=== PATIENT | female | born 1945 ===

== ENCOUNTER 2020-01-02 08:45 | Inpatient (IN) | payer OTHER ==
[~2020-01-02] VITALS: Ht 157.5 cm; Wt 70.3 kg
[2020-01-02] MEDS ORDERED: CRESTOR10 MG PO (11:26)
[2020-01-02] MEDS ORDERED: JANUVIA100 MG PO (11:27)
[2020-01-02] MEDS ORDERED: TOPROL XL25 M1 PO (11:27)
[2020-01-02] MEDS ORDERED: JANUVIA25 MG (11:27)
[2020-01-02] MEDS ORDERED: METFORMIN PO (11:28)
[2020-01-02] MEDS ORDERED: GLIMEPIRIDE4 M1 PO (11:28)
[2020-01-02] MEDS ORDERED: LOSARTAN POTASS50 MG PO (11:29)
[2020-01-02] MEDS ORDERED: ASPIR 8181 MG PO (11:29)
[2020-01-02] MEDS ORDERED: PANTOPRAZOLE SO40 MG PO (11:30)
[2020-01-02] MEDS ORDERED: [UNRECOGNIZED DRUG - OTHER] EP (11:31)
[2020-01-02] MEDS ORDERED: AZOPT (11:33)
[2020-01-02] MEDS ORDERED: TIMOLOL (11:34)
[2020-01-02] MEDS ORDERED: BETIMOL5 M1 (11:36)
[2020-01-02] MEDS ORDERED: LANTUS (11:37)
[2020-01-02] MEDS ORDERED: LANTUS SUBCUTANEO (11:38)
[2020-01-02] MEDS ORDERED: INTEGRA CAPSUL1 EACH PO (11:39)
[2020-01-02] MEDS ORDERED: BIOTIN1000 MCG PO (11:52)
[2020-01-02] MEDS ORDERED: VITAMIN D310 MCG/1 M PO (11:52)
[2020-01-02] MEDS ORDERED: VITAMIN C100 MG PO (11:53)
[2020-01-05] MEDS ORDERED: BIOTIN5000 MCG PO (08:38)
[2020-01-05] MEDS ORDERED: VITAMIN C250 MG PO (08:39)
[2020-01-05] MEDS ORDERED: VITAMIN B-121000 MC4 PO (08:40)
[2020-01-05] MEDS ORDERED: METFORMIN HCL500 M3 PO (08:41)
[2020-01-05] MEDS ORDERED: LANTUS SOL100 UNIT/1 SQ (08:42)
[2020-01-05] MEDS ORDERED: RESTASIS1 EACH OP (08:47)
[2020-01-08] MEDS ORDERED: OXYC1TAB9 PO (12:41)
== END 2020-01-08 13:50 | disposition home or self-care (01) | DRG 331 ==
LOC: SURH 01-04 08:20 → O/R 01-05 08:45 → EDBD 01-05 08:45 → SURH 01-08 13:50
PROVIDERS: ADMIT Surgery; ATTEND Surgery
PROC: 30233N1 Transfusion of Nonautologous Red Blood Cells into Peripheral Vein, Percutaneous Approach (ICD-10-PCS; 2020-01-04)
PROC: 07BD4ZX Excision of Aortic Lymphatic, Percutaneous Endoscopic Approach, Diagnostic (ICD-10-PCS; 2020-01-04)
PROC: 0DTF4ZZ Resection of Right Large Intestine, Percutaneous Endoscopic Approach (ICD-10-PCS; principal; 2020-01-05 09:00)
DX: C18.0 Malignant neoplasm of cecum (principal); D50.0 Iron deficiency anemia secondary to blood loss (chronic); I11.9 Hypertensive heart disease without heart failure; E11.9 Type 2 diabetes mellitus without complications; E78.00 Pure hypercholesterolemia, unspecified; E03.9 Hypothyroidism, unspecified; K57.30 Diverticulosis of large intestine without perforation or abscess without bleeding; D36.0 Benign neoplasm of lymph nodes

== ENCOUNTER 2023-09-16 13:58 | Outpatient (CLI) | payer OTHER ==
[~2023-09-16 13:58] MED LIST: ASPIR 8181 MG PO; AZOPT; BETIMOL5 M1; BIOTIN1000 MCG PO; BIOTIN5000 MCG PO; CRESTOR10 MG PO; GLIMEPIRIDE4 M1 PO; INTEGRA CAPSUL1 EACH PO; JANUVIA100 MG PO; JANUVIA25 MG; LANTUS; LANTUS SOL100 UNIT/1 SQ; LANTUS SUBCUTANEO; LOSARTAN POTASS50 MG PO; METFORMIN HCL500 M3 PO; METFORMIN PO; OXYC1TAB9 PO; PANTOPRAZOLE SO40 MG PO; RESTASIS1 EACH OP; TIMOLOL; TOPROL XL25 M1 PO; VITAMIN B-121000 MC4 PO; VITAMIN C100 MG PO; VITAMIN C250 MG PO; VITAMIN D310 MCG/1 M PO; [UNRECOGNIZED DRUG - OTHER] EP
== END 2023-09-16 14:05 | disposition home or self-care (01) ==
LOC: MRI 13:58 → TOM 13:58 → MRI 14:05
PROVIDERS: ATTEND Orthopaedic Surgery
DX: S42.232A 3-part fracture of surgical neck of left humerus, initial encounter for closed fracture (principal)

== ENCOUNTER 2023-09-24 07:12 | Outpatient (CLI) | payer OTHER | END 2023-09-24 07:16 | disposition home or self-care (01) | LOC: RAD 07:12 | PROVIDERS: ATTEND Orthopaedic Surgery | DX: S42.232A 3-part fracture of surgical neck of left humerus, initial encounter for closed fracture (principal) ==

== ENCOUNTER 2023-10-01 07:16 | Outpatient (CLI) | payer OTHER | END 2023-10-01 07:22 | disposition home or self-care (01) | LOC: RAD 07:16 | PROVIDERS: ATTEND Orthopaedic Surgery | DX: S42.232D 3-part fracture of surgical neck of left humerus, subsequent encounter for fracture with routine healing (principal) ==